=== PATIENT | female | born 1945 | race Caucasian/White ===

== ENCOUNTER 2016-08-07 17:52 | Inpatient (IN) | payer MEDICARE, OTHER ==
[2016-08-07] MEDS ORDERED: Adacel Vial IM ONE ×2 (18:02→18:18)
[2016-08-07] MEDS ORDERED: Zofran 4 MG/2 ML VIAL IV ONE (18:02)
[2016-08-07] MEDS ORDERED: Hydromorphone 1 mg/ml Ampule IV ONE (18:02)
--- NOTE | 2016-08-07 18:07 | ERPHSYRPT ---
- History of Present Illness Time Seen by Provider: 08/07/16 17:59 Source: patient Patient Subjective Stated Complaint: pt states she missed the last 2 steps on her stairs and injured left hip. pt c/o pain to left hip. Triage Nursing Assessment: pt pink, warm, dry. no deformity noted. no bruising at this time. pedal pulses strong. denies any other injuries. abrasion noted to left knee. Physician History: CC: left hip pain Hx: 71 y/o patient fell on last step in her basement. She landed on concrete. Pain in left hip prevents weight bearing. She had prior right hip replacement per Dr Trevino. She has no head injury. No neck or back pain. No chest pain. No abd pain. No N/T/W. Pain is severe and worse with movement. Unsure last tetanus vaccine. She has abrasion left knee without pain in knee. Timing/Duration: today Occured at: home Context: tripped (on last step) Hip Pain Location: hip (L) Severity of Pain-Max: severe Severity of Pain-Current: severe Allergies/Adverse Reactions: No Known Drug Allergies Allergy (Unverified 08/07/16 18:04) Home Medications: Calcium [Natural Calcium] 500 mg PO 5XD 08/07/16 [History] Cholecalciferol (Vitamin D3) [Vitamin D3] 1,000 unit PO DAILY 08/07/16 [History] [place]-3 Fatty Acids [Fish Oil] 300 mg PO DAILY 08/07/16 [History] Solifenacin Succinate [Vesicare] 10 mg PO DAILY 08/07/16 [History] Sulfamethoxazole/Trimethoprim [Sulfamethoxazole-Tmp Ds Tablet] 1 each PO BID [History] Hx Tetanus, Diphtheria Vaccination/Date Given: Yes (unknown) Hx Influenza Vaccination/Date Given: Yes Hx Pneumococcal Vaccination/Date Given: Yes Immunizations Up to Date: Yes - Review of Systems Constitutional: No Symptoms Eyes: No Vision Changes Ears, Nose, & Throat: No Symptoms Respiratory: No Dyspnea Cardiac: No Chest Pain Abdominal/Gastrointestinal: No Abdominal Pain, No Nausea, No Vomiting Musculoskeletal: Fall, Injury (left hip), No Back Pain, No Neck Pain Skin: No Rash Neurological: No Dizziness, No Focal Weakness, No Headache, No Parasthesia All Other Systems: Reviewed and Negative - Past Medical History Pertinent Past Medical History: Yes Cardiac History: High Cholesterol - Past Surgical History Past Surgical History: Yes Musculoskeletal: Joint Replacement, Orthopedic Surgery - Social History Smoking Status: Never smoker Exposure to second hand smoke: No Drug Use: none Patient Lives Alone: No - Nursing Vital Signs Nursing Vital Signs: Initial Vital Signs Temperature 98.7 F Temperature Source Oral Pulse Rate 68 Respiratory Rate 16 Blood Pressure [Right Arm] 157/74 Pain Intensity 0 - Physical Exam General Appearance: alert Eye Exam: PERRL/EOMI Ears, Nose, Throat Exam: normal ENT inspection, moist mucous membranes Neck Exam: normal inspection, non-tender, supple, No midline tenderness Respiratory Exam: normal breath sounds, lungs clear, No chest tenderness Cardiovascular Exam: regular rate/rhythm Gastrointestinal Exam: soft, No tenderness, No distention Extremity Exam: tenderness (left hip), other (abrasion left anterior knee without bony tenderness) Neurologic Exam: alert, oriented x 3, cooperative, switch adjuster II-XII nml as tested, sensation nml, No motor deficits Skin Exam: warm, dry, No rash - Course Nursing assessment & vital signs reviewed: Yes - Radiology Exams pelvix/left hip X-ray Interpretation: Reviewed by me (left supcapital fx) Ordered Tests: Active Orders 24 hr Category Date Time Status Catheter-Ringle Lina[place] STAT Care 08/07/16 18:02 Active IV Insertion STAT Care 08/07/16 18:02 Active NPO (ED) STAT Care 08/07/16 18:02 Active Oxygen-ED Only NASAL CANNULA 2 lpm Care 08/07/16 19:09 Active HIP UNI (2V) INCL PEL IF DONE Stat Exams 08/07/16 18:03 Taken CBC W DIFF Stat Lab 08/07/16 18:21 Completed CMP Stat Lab 08/07/16 18:21 Completed CULTURE,URINE Stat Lab 08/07/16 18:38 Received UA W/ MICROSCOPIC Stat Lab 08/07/16 18:38 Completed Medication Summary Generic Name Dose Route Start Last Admin Trade Name Freq PRN Reason Stop Dose Admin Sodium Chloride 1,000 mls @ 50 mls/hr 08/07/16 18:15 08/07/16 18:19 Sodium Chloride 0.9% 1000 Ml IV 09/06/16 18:14 50 mls/hr .Q20H WAYLON Administration Discontinued Medications Generic Name Dose Route Start Last Admin Trade Name Freq PRN Reason Stop Dose Admin Diphtheria/Tetanus/Acell Pertussis 0.5 ml 08/07/16 18:02 08/07/16 18:18 Adacel Vial IM 08/07/16 18:03 0.5 ml .ONCE ONE Administration Diphtheria/Tetanus/Acell Pertussis Confirm 08/07/16 18:18 Adacel Vial Administered 08/07/16 18:19 Dose 0.5 ml IM .STK-MED ONE Hydromorphone HCl 1 mg 08/07/16 18:02 08/07/16 18:19 Hydromorphone 1 Mg/Ml Ampule IV 08/07/16 18:03 1 mg STAT ONE Administration Hydromorphone HCl Confirm 08/07/16 18:14 Hydromorphone 1 Mg/Ml Ampule Administered 08/07/16 18:15 Dose 1 mg .ROUTE .STK-MED ONE Ondansetron HCl 4 mg 08/07/16 18:02 08/07/16 18:19 Zofran 4 Mg/2 Ml Vial IV 08/07/16 18:03 4 mg STAT ONE Administration Ondansetron HCl Confirm 08/07/16 18:14 Zofran 4 Mg/2 Ml Vial Administered 08/07/16 18:15 Dose 4 mg .ROUTE .STK-MED ONE Lab/Rad Data: Laboratory Result Diagrams 08/07/16 18:21 08/07/16 18:21 Laboratory Results 08/07/16 08/07/16 08/07/16 Range/Units 18:38 18:21 18:21 WBC 5.8 (4.0-10.5) K/mm3 RBC 4.40 (4.1-5.4) M/mm3 Hgb 12.7 (12.0-16.0) gm/dl Hct 39.5 (35-47) % MCV 89.8 (78-100) fl MCH 28.9 (26-32) pg MCHC 32.2 (32-36) g/dl RDW 13.2 (11.5-14.0) % Plt Count 193 (150-450) K/mm3 MPV 10.3 H (6-9.5) fl Gran % 60.7 (36.0-66.0) % Lymphocytes % 27.5 (24.0-44.0) % Monocytes % 7.6 (0.0-12.0) % Eosinophils % 4.0 (0.00-5.0) % Basophils % 0.2 (0.0-0.4) % Basophils # 0.01 (0-0.4) Sodium 141 (136-145) mEq/L Potassium 4.0 (3.5-5.1) mEq/L Chloride 106 (98-107) mEq/L Carbon Dioxide 24.8 (21-32) mEq/L Anion Gap 14.4 (5-15) MEQ/L BUN 19 (9-20) mg/dL Creatinine 1.23 (0.55-1.30) mg/dl Estimated GFR 46 ML/MIN Glucose 124 H (70-110) MG/DL Calcium 9.8 (8.5-10.1) mg/dL Total Bilirubin 0.2 (0.2-1.0) mg/dL AST 19 (15-37) U/L ALT 24 (12-78) U/L Alkaline Phosphatase 67 (46-116) U/L Serum Total Protein 6.7 (6.4-8.2) gm/dL Albumin 3.5 (3.4-5.0) g/dL Ur Collection Type CLEAN CATCH Urine Color YELLOW (YELLOW) Urine Appearance CLOUDY (CLEAR) Urine pH 6.0 (5-6) Ur Specific [place] 1.025 (1.005-1.025) Urine Protein 30 (Negative) Urine Glucose (UA) NEGATIVE (NEGATIVE) mg/dL Urine Ketones NEGATIVE (NEGATIVE) Urine Nitrite NEGATIVE (NEGATIVE) Urine Bilirubin NEGATIVE (NEGATIVE) Urine Urobilinogen 0.2 (0-1) mg/dL Urine WBC (Auto) TRACE (NEGATIVE) Urine RBC (Auto) LARGE (0-5) Robinson/ul Urine Microscopic RBC 50-100 (0-2) /HPF Urine Microscopic WBC 15-25 (0-5) /HPF Ur Epithelial Cells MODERATE (FEW) /HPF Urine Bacteria FEW (NEGATIVE) /HPF Specimen Received 08/07/16 1830 - Progress Progress Note: 08/07/16 19:16 Pt and aware of fx. Discussed options. They prefer admit here for Dr Narayan. Called Dr Narayan who advised admit, ice, no traction at present, eat now but NPO after MN. Called Dr Aguilar for Dr Rafy Johnson for admission. Will culture urine and cover with rocephin as she has pyruria. Will see patient in: hospital (full admit) Counseled pt/family regarding: diagnosis, need for follow-up, rad results - Departure Time of Disposition: 19:17 Departure Disposition: In-patient Admission Clinical Impression: Subcapital fracture of left hip Qualifiers: Encounter type: initial encounter Fracture type: closed Qualified Code(s): S72.012A - Unspecified intracapsular fracture of left femur, initial encounter for closed fracture UTI (urinary tract infection) Qualifiers: Urinary tract infection type: acute cystitis Hematuria presence: without hematuria Qualified Code(s): N30.00 - Acute cystitis without hematuria Condition: Fair Critical Care Time: No Referrals: JENNA JOHNSON [Primary Care Provider] -
[2016-08-07] MEDS ORDERED: Hydromorphone 1 mg/ml Ampule ONE (18:14)
[2016-08-07] MEDS ORDERED: Zofran 4 MG/2 ML VIAL ONE (18:14)
[2016-08-07] MEDS ORDERED: Sodium Chloride 0.9% 1000 ML 1,000 ML ONE (18:14)
[2016-08-07] MEDS ORDERED: Sodium Chloride 0.9% 1000 ML 1,000 ML IV SCH (18:15)
[2016-08-07 18:27] LABS: BASOPHIL % 0.2 % (0.0-0.4); Granulocytes % 60.7 % (36.0-66.0); Lymphocytes % 27.5 % (24.0-44.0); Mean Cell Volume 89.8 fl (78-100); Mean Corpuscular Hemoglobin 28.9 pg (26-32); Mean Platelet Volume 10.3 fl (6-9.5); Monocytes % 7.6 % (0.0-12.0); Platelet Count 193 K/mm3 (150-450); Red Cell Distribution Width 13.2 % (11.5-14.0); White Blood Count 5.8 K/mm3 (4.0-10.5)
[2016-08-07 18:57] LABS: COMPLETE URINE MICROSCOPIC? YES; Collection Type CLEAN CATCH
[2016-08-07 18:58] LABS: Bacteria FEW /HPF (NEGATIVE); Epithelial Cells MODERATE /HPF (FEW); WBC 15-25 /HPF (0-5)
[2016-08-07 19:10] LABS: ALBUMIN 3.5 g/dL (3.4-5.0); ANION GAP 14.4 MEQ/L (5-15); BILIRUBIN,TOTAL 0.2 mg/dL (0.2-1.0); Carbon Dioxide 24.8 mEq/L (21-32); Total Protein 6.7 gm/dL (6.4-8.2)
[2016-08-07] MEDS ORDERED: ROCEPHIN 1 Gm-D5w 50 ml Bag** 1 G/50 ML IVPB IV STA (19:15)
[2016-08-07] MEDS ORDERED: ROCEPHIN 1 Gm-D5w 50 ml Bag** 1 G/50 ML IVPB IV ONE (19:17)
[2016-08-07] MEDS ORDERED: Zofran 4 MG/2 ML VIAL IV PRN (19:36)
[2016-08-07] MEDS: D5W/0.45NS W/ 20mEq KCl 1000 ML 1,000 ML IV SCH (21:29)
[2016-08-07] MEDS: DILAUDID 1 MG/1ML PCA IV PRN (21:38)
[2016-08-08] MEDS: D5W/0.45NS W/ 20mEq KCl 1000 ML 1,000 ML IV SCH ×2 (05:11→15:49)
[2016-08-08 06:33] LABS: ANION GAP 9.9 MEQ/L (5-15); BLOOD UREA NITROGEN 15 mg/dL (9-20); CHLORIDE 106 mEq/L (98-107); Glucose 145 MG/DL (70-110); Potassium 3.6 mEq/L (3.5-5.1); SODIUM 139 mEq/L (136-145)
[2016-08-08 06:40] LABS: Mean Cell Volume 90.9 fl (78-100); Mean Corpuscular Hemoglobin 28.9 pg (26-32); Mean Platelet Volume 10.4 fl (6-9.5); Platelet Count 159 K/mm3 (150-450); Red Blood Count 4.19 M/mm3 (4.1-5.4); Red Cell Distribution Width 13.4 % (11.5-14.0); White Blood Count 5.3 K/mm3 (4.0-10.5)
[2016-08-08] MEDS: DILAUDID 1 MG/1ML PCA IV PRN ×2 (08:00→13:45)
--- NOTE | 2016-08-08 08:28 | PCM.HP ---
History of Present Illness - Chief Complaint Chief Complaint: Hip fracture Date: 08/08/16 History of Present Illness: is a 71 year old female. Who missed the last 2 steps at her home falling resulting in left hip pain found to have a left hip fracture. Pain is controlled now on the medication as long as she doesn't move it.Otherwise no symptoms. She is following with urology for hematuria and they have her on bactrim pending an upcoming cystoscopy. - Review of Systems Constitutional: No Fever, No Chills Eyes: No Symptoms Ears, Nose, & Throat: No Symptoms Respiratory: No Cough, No Short Of Breath Cardiac: No Chest Pain, No Edema, No Syncope Abdominal/Gastrointestinal: No Abdominal Pain, No Nausea, No Vomiting, No Diarrhea Genitourinary Symptoms: Hematuria, No Dysuria, No Frequency Musculoskeletal: Joint Pain, No Back Pain, No Neck Pain Skin: No Cellulitis, No Rash Neurological: No Dizziness, No Focal Weakness, No Sensory Changes Psychological: No Symptoms Endocrine: No Symptoms Hematologic/Lymphatic: No Symptoms Immunological/Allergic: No Symptoms Medications & Allergies Home Medications: Home Medication List Calcium [Natural Calcium] 500 mg PO 5XD 08/07/16 [History Confirmed 08/07/16] Cholecalciferol (Vitamin D3) [Vitamin D3] 1,000 unit PO DAILY 08/07/16 [History Confirmed 08/07/16] [place]-3 Fatty Acids [Fish Oil] 300 mg PO DAILY 08/07/16 [History Confirmed 08/07] Solifenacin Succinate [Vesicare] 10 mg PO DAILY 08/07/16 [History Confirmed ] Sulfamethoxazole/Trimethoprim [Sulfamethoxazole-Tmp Ds Tablet] 1 each PO BID [History Confirmed 08/07/16] Allergies/Adverse Reactions: Allergies Allergy/AdvReac Type Severity Reaction Status Date / Time No Known Drug Allergies Allergy Unverified 08/07/16 18:04 - Past Medical History Past Medical History: No Neurological History: No Pertinent History ENT History: No Pertinent History Cardiac History: No Pertinent History Respiratory History: No Pertinent History Endocrine Medical History: No Pertinent History Musculoskelatal History: Arthritis, Fractures GI Medical History: No Pertinent History History: No Pertinent History Reproductive Disorders: No Pertinent History Comment: Wrist fracture greater than 3 yrs ago, current hip fracture. - Female History Are you now?: No - Past Surgical History Past Surgical History: No Neuro Surgical History: No Pertinent History Cardiac History: No Pertinent History Respiratory Surgery: No Pertinent History GI Surgical History: No Pertinent History Genitourinary Surgical Hx: No Pertinent History Musculskeletal Surgical Hx: No Pertinent History Female Surgical History: No Pertinent History - Social History Smoking Status: Never smoker Exposure to second hand smoke: No Alcohol: None Drug Use: none - Physical Exam Vital Signs: Vital Signs - 24 hr Temp Pulse Resp BP Pulse Ox 08/08/16 07:11 98.8 F 71 18 113/81 96 08/08/16 06:40 98 08/08/16 04:15 98.5 F 67 22 124/73 96 08/08/16 01:38 93 L 08/08/16 00:43 95 08/08/16 00:00 98.0 F 68 16 140/80 95 08/07/16 21:38 95 08/07/16 21:36 71 18 96 08/07/16 20:18 97.6 F 70 16 171/79 95 08/07/16 19:08 68 16 157/74 96 08/07/16 17:58 98.7 F 72 18 174/80 Oxygen-Last 24 hours O2 Percentage 2 Liters = 28% O2 Percentage 2 Liters = 28% O2 Percentage 2 Liters = 28% O2 Percentage 2 Liters = 28% O2 Percentage 2 Liters = 28% O2 Percentage 2 Liters = 28% General Appearance: no apparent distress, alert Neurologic Exam: alert, oriented x 3, cooperative, normal mood/affect, nml cerebellar function, nml station & gait, sensation nml, No motor deficits Eye Exam: PERRL/EOMI, eyes nml inspection Ears, Nose, Throat Exam: normal ENT inspection, TMs normal, pharynx normal, moist mucous membranes Neck Exam: normal inspection, non-tender, supple, full range of motion Respiratory Exam: normal breath sounds, lungs clear, No respiratory distress Cardiovascular Exam: regular rate/rhythm, normal heart sounds, normal peripheral pulses Gastrointestinal/Abdomen Exam: soft, normal bowel sounds, No tenderness, No mass Back Exam: normal inspection, normal range of motion, No CVA tenderness, No vertebral tenderness Extremity Exam: normal inspection, other (left leg with good peripharl sensation adn perfusion), No pedal edema Skin Exam: normal color, warm, dry, No rash Lymphatic Exam: No adenopathy Results - Labs Lab/Micro Results: Lab Results-Last 24 Hours 08/08/16 08/08/16 Range/Units 05:20 05:20 WBC 5.3 (4.0-10.5) K/mm3 RBC 4.19 (4.1-5.4) M/mm3 Hgb 12.1 (12.0-16.0) gm/dl Hct 38.1 (35-47) % MCV 90.9 (78-100) fl MCH 28.9 (26-32) pg MCHC 31.8 L (32-36) g/dl RDW 13.4 (11.5-14.0) % Plt Count 159 (150-450) K/mm3 MPV 10.4 H (6-9.5) fl Sodium 139 (136-145) mEq/L Potassium 3.6 (3.5-5.1) mEq/L Chloride 106 (98-107) mEq/L Carbon Dioxide 27.0 (21-32) mEq/L Anion Gap 9.9 (5-15) MEQ/L BUN 15 (9-20) mg/dL Creatinine 0.96 (0.55-1.30) mg/dl Estimated GFR > 60 ML/MIN Glucose 145 H (70-110) MG/DL Calcium 8.5 (8.5-10.1) mg/dL Prealbumin 20.9 (18.0-35.7) mg/dL Assessment/Plan (1) Subcapital fracture of left hip Current Visit: Yes Status: Acute Qualifiers: Encounter type: initial encounter Fracture type: closed Qualified Code(s) : S72.012A - Unspecified intracapsular fracture of left femur, initial encounter for closed fracture Code(s): S72.012A - UNSP INTRACAPSULAR FRACTURE OF LEFT FEMUR, INIT FOR CLOS FX (2) Hematuria Current Visit: Yes Status: Acute Assessment & Plan: chronic following with urology who has her on ppx bactrim will continue the Rocephin while inpatient for the fracture and pednign culture resume bactrim on discharge per urology orders Code(s): R31.9 - HEMATURIA, UNSPECIFIED
[2016-08-08] MEDS: Ditropan 5 MG PO SCH ×2 (08:56→21:05)
[2016-08-08] MEDS: VITAMIN D PO SCH (08:56)
[2016-08-08] MEDS: Calcium 500MG W/Vit D Tablet PO SCH ×4 (08:56→21:04)
[2016-08-08] MEDS: FISH OIL 1,000 MG CAPSULE PO SCH (08:56)
--- NOTE | 2016-08-08 09:03 | XRAY ---
Indication: Left hip pain following fall. Comparison: None AP pelvis and 2 views of the left hip demonstrates minimally impacted left subcapital femur fracture. Elsewhere osteopenia, right total hip arthroplasty, and lower lumbar degenerative changes.
--- NOTE | 2016-08-08 09:03 | XRAY ---
Indication: Hypoxia. Comparison: None Portable chest clear. Heart and mediastinal structures within normal limits for AP portable technique. Bony thorax intact with osteopenia and advanced left shoulder degenerative changes. Impression: Nonacute chest.
[2016-08-08] MEDS ORDERED: NON-FORMULARY ITEM (Cholecalciferol (Vitamin D3) [Vitamin D3] 1,000 UNIT) PO SCH (10:00)
[2016-08-08] MEDS ORDERED: NON-FORMULARY ITEM (Omega-3 Fatty Acids [Fish Oil] 300 MG) PO SCH (10:00)
[2016-08-08] MEDS ORDERED: NON-FORMULARY ITEM (Solifenacin Succinate [Vesicare] 10 MG) PO SCH (10:00)
[2016-08-08] MEDS ORDERED: CALCIUM 500 MG PO SCH (11:00)
[2016-08-08] MEDS ORDERED: CEFAZOLIN 2 GM-D5W BAG** 50 ML IV SCH (16:30)
[2016-08-08] MEDS: ROCEPHIN 1 Gm-D5w 50 ml Bag** 1 G/50 ML IVPB IV SCH (21:06)
[2016-08-09] MEDS: D5W/0.45NS W/ 20mEq KCl 1000 ML 1,000 ML IV SCH (02:28)
[2016-08-09] MEDS: Lactated Ringers 1,000 ML IV SCH ×2 (05:06→19:19)
[2016-08-09] MEDS ORDERED: CEFAZOLIN 2 GM-D5W BAG** 50 ML IV ONE (05:17)
[2016-08-09] MEDS ORDERED: Lactated Ringers 1,000 ML IV ONE (06:32)
--- NOTE | 2016-08-09 08:45 | OP ---
SURGERY DATE/TIME: 08/09/2016709 PREOPERATIVE DIAGNOSIS: Unstable fracture left proximal femur. POSTOPERATIVE DIAGNOSIS: Unstable fracture left proximal femur. PROCEDURES: 1) Left proximal femur open reduction internal fixation. 2) Fluoroscopy per surgeon. 3) Modified long leg splint. SURGEON: Billy Narayan D.O. INTERNET MARKETING CONSULTANT: None. ANESTHESIA: General per TRUST MANAGER. ESTIMATED BLOOD LOSS: Minimal. INDICATION: The patient has a subcapital fracture of the hip which is a Garden II maybe Garden III on the overall fracture deformity platform this really can be treated either with simple pinning or a bipolar hemiarthroplasty. However as I discussed with the patient, simpler more easily recoverable procedure is wisest although there is the risk for femoral head avascular necrosis and lack of healing with a femoral neck fracture in the coming 6 to 12 weeks and there is always the chance it may be converted to bipolar hemiarthroplasty with some modified hip replacement similar to what the patient had on the opposite side not for a fracture but for a degenerative condition apparently. DESCRIPTION OF PROCEDURE: The patient is taken to the operative suite and placed in supine position, given general anesthetic, placed supine. All neurovascular areas well padded. Sterile prep and drape done to the left hip after traction placement was done for the leg and nice reduction obtained on AP and lateral views. Incision made across the lateral aspect of the hip down to fascia, down to bone and then the modified reduction techniques held and started by guide pin 3.2 mm placed two to three across the fracture site and then followed by a depth gauge, followed by cannulated screws. The cannulated screws were varying in length from 90 to 95 mm. Using a cortex breaker and then delivering these under power AP and lateral views throughout the procedure performed for maintenance of reduction. Ultimately once the fracture was fixed and then truly held, the wounds were irrigated with saline and closed with interrupted 0 Vicryl and then alice in the skin. Xeroform, 4x4 and sterile dressings applied. The patient is sent on to recovery in satisfactory condition at that point.
--- NOTE | 2016-08-09 09:13 | XRAY ---
Indication: ORIF surgery for fracture. Intraoperative fluoroscopy was provided for 2 minutes and 25 seconds. 2 digital spot images submitted for interpretation demonstrates 3 orthopedic screws fixating a subcapital femur fracture. Apposition/alignment is near-anatomic. Correlate with intraoperative findings/report.
[2016-08-09] MEDS ORDERED: MORPHINE SULFATE 4 MG INJ IV PRN (09:59)
[2016-08-09] MEDS: Calcium 500MG W/Vit D Tablet PO SCH ×2 (10:00→22:37)
[2016-08-09] MEDS: FISH OIL 1,000 MG CAPSULE PO SCH (10:00)
[2016-08-09] MEDS: Ditropan 5 MG PO SCH ×2 (10:00→22:41)
[2016-08-09] MEDS: VITAMIN D PO SCH (10:00)
[2016-08-09] MEDS ORDERED: SUBLIMAZE 250 MCG/5 ML IJ ONE (12:54)
--- NOTE | 2016-08-09 14:29 | XRAY ---
2 minutes and 25 seconds fluoroscopy time in surgery for left hip reduction.
[2016-08-09] MEDS: DILAUDID 1 MG/1ML PCA IV PRN (16:38)
[2016-08-09] MEDS ORDERED: TYLENOL EXTRA STRENGTH 500 MG PO PRN (19:10)
[2016-08-09] MEDS: ROCEPHIN 1 Gm-D5w 50 ml Bag** 1 G/50 ML IVPB IV SCH (22:37)
[2016-08-10 05:45] LABS: Mean Cell Volume 90.9 fl (78-100); Mean Corpuscular Hemoglobin 28.5 pg (26-32); Mean Platelet Volume 10.1 fl (6-9.5); Platelet Count 156 K/mm3 (150-450); Red Blood Count 4.39 M/mm3 (4.1-5.4); Red Cell Distribution Width 13.2 % (11.5-14.0); White Blood Count 4.5 K/mm3 (4.0-10.5)
[2016-08-10] MEDS ORDERED: DIPRIVAN 200 MG/20 ML IV ONE (08:00)
[2016-08-10] MEDS ORDERED: Catapres 0.1 MG PO PRN (08:13)
[2016-08-10 08:18] VITALS: PULSE 88; O2SAT 93
--- NOTE | 2016-08-10 08:23 | PCM.DCORD ---
- Discharge Discharge Date: 08/10/16 Disposition: Home, Self-Care Condition: Good Prescriptions: New Enoxaparin Sodium [Enoxaparin Sodium] 40 mg SQ DAILY #9 syringe Hydrocodone Bit/Acetaminophen [[place] 5-325 Tablet] 1 each PO Q4H PRN #24 tablet PRN Reason: Pain Continue Solifenacin Succinate [Vesicare] 10 mg PO DAILY Cholecalciferol (Vitamin D3) [Vitamin D3] 1,000 unit PO DAILY [place]-3 Fatty Acids [Fish Oil] 300 mg PO DAILY Calcium [Natural Calcium] 500 mg PO BID Sulfamethoxazole/Trimethoprim [Sulfamethoxazole-Tmp Ds Tablet] 1 each PO BID Follow up with: JENNA JOHNSON [Primary Care Provider] - SUZE DERAS [ACTIVE STAFF] - 08/23/16 9:00 am (at t.h. office) Forms: Patient Portal Information
[2016-08-10] MEDS: FISH OIL 1,000 MG CAPSULE PO SCH (09:21)
[2016-08-10] MEDS: VITAMIN D PO SCH (09:21)
[2016-08-10] MEDS: Calcium 500MG W/Vit D Tablet PO SCH (09:21)
[2016-08-10 09:24] VITALS: BP 159/76
[2016-08-10] MEDS ORDERED: ENOXAPARIN SODIUM SQ SCH (10:00)
[2016-08-10] MEDS: DILAUDID 1 MG/1ML PCA IV PRN (10:55)
[2016-08-10] MEDS ORDERED: TORAdol 30 mg Injection IJ ONE (12:54)
[2016-08-10] MEDS ORDERED: BLOXIVERZ IV ONE (12:54)
[2016-08-10] MEDS ORDERED: ROBINUL IV ONE (12:54)
[2016-08-10] MEDS ORDERED: Zemuron 100 MG/10 ML IJ ONE (12:54)
[2016-08-10] MEDS ORDERED: Versed 2 MG/2 ML Injection IV ONE (12:54)
--- NOTE | 2016-08-13 21:07 | PCM.DS ---
Discharge Summary Date of Admission: 08/07/16 20:11 Date of Discharge: 08/10/16 Admitting Physician: JENNA JOHNSON Consults: Consults on Case 08/09/16 10:00 Consult Physician ROUTINE Primary Care Provider: JENNA JOHNSON Allergies Allergies No Known Drug Allergies Allergy (Unverified 08/07/16 18:04) Hospital Summary - Hospital Course Hospital Course: She slipped on her basement steps falling down the last 2 resulting in left hip fracture. This was pineed by Dr. Narayan on 08/09/2016 see his op report for details. Her pain was controlled she was partial weight baring and discharged to home with 10 day total of post op dvt ppx of lovenox 40 mcg. She was having some labile htn as well and some difficulty urinating at times and she is going to hold her antispasmodic until urination improves. - Vitals & Intake/Output Vital Signs: Vital Signs Temperature 97.6 F 08/10/16 13:00 Pulse Rate 88 08/10/16 13:00 Respiratory Rate 20 08/10/16 08:00 Blood Pressure 159/76 08/10/16 13:00 O2 Sat by Pulse Oximetry 93 L 08/10/16 13:00 Oxygen-Last Documented O2 Percentage 2 Liters = 28% Intake & Output: Intake & Output 08/11/16 08/12/16 08/13/16 08/14/16 11:59 11:59 11:59 11:59 Intake Total 240 Output Total 100 Balance 140 - Lab Result Diagrams: 08/10/16 05:25 08/08/16 05:20 - Procedures and Test Procedures and Tests throughout Hospitalization: Therapy Orders & Screens 08/08/16 10:00 OT Screen per Nursing Assess Comment: Protocol Order Physician Instructions: Greater than 3 points order OT Admission Screening Reason For Exam: Triggered on Admission Diagnosis: Hip fracture Open Wound/Cellutlitis/Pressure Ulcers: No Acute Fx/ORIF/Change in wt bearing status: Yes Severe MUSCULOSKELETAL pain: Yes ADL Dysfunction: No Acute CVA w/Hemiparesis/Hemiplegia: No Decreased Functional Mobility/Strength: Yes Sprain/Strain: No Acute Post-op Mobility Dysfunction: No Total Points: 11 PT Screen per Nursing Assess ONCE Comment: Protocol Order Physician Instructions: Greater than 3 points order PT Admission Screenin Reason For Exam: Triggered on Admission Diagnosis: Hip fracture Open Wound/Cellutlitis/Pressure Ulcers: No Acute Fx/ORIF/Change in wt bearing status: Yes Severe MUSCULOSKELETAL pain: Yes ADL Dysfunction: No Acute CVA w/Hemiparesis/Hemiplegia: No Decreased Functional Mobility/Strength: Yes Sprain/Strain: No Acute Post-op Mobility Dysfunction: No Total Points: 11 08/09/16 09:48 Incentive Spirometry Assessmen TID Comment: Diagnosis: Hip fracture 08/09/16 10:00 PT Eval & Treat (MD Order) Evaluate: Yes Treat: Yes Reason for Eval:: dailyfor partial weight bearing and walker training Diagnosis: left hip orif Discharge Exam General Appearance: no apparent distress, alert Neurologic Exam: alert, oriented x 3, cooperative, normal mood/affect, nml cerebellar function, sensation nml, No motor deficits Skin Exam: normal color, warm, dry Eye Exam: PERRL, EOMI, eyes nml inspection Ears, Nose, Throat Exam: pharynx normal, moist mucous membranes Neck Exam: normal inspection, non-tender, supple, full range of motion Respiratory Exam: normal breath sounds, lungs clear, No respiratory distress Cardiovascular Exam: regular rate/rhythm, normal heart sounds Gastrointestinal/Abdomen Exam: soft, No tenderness, No mass Extremity Exam: normal inspection, other (no edema good peirpheral perfusion) Back Exam: normal inspection, normal range of motion, No CVA tenderness, No vertebral tenderness Pelvic Exam: deferred Rectal Exam: deferred Final Diagnosis/Problem List - Final Discharge Diagnosis/Problem (1) Subcapital fracture of left hip Status: Acute (2) Hematuria Status: Acute - Discharge Discharge Date: 08/10/16 Disposition: Home, Self-Care Condition: Good Prescriptions: New Enoxaparin Sodium [Enoxaparin Sodium] 40 mg SQ DAILY #9 syringe Hydrocodone Bit/Acetaminophen [[place] 5-325 Tablet] 1 each PO Q4H PRN #24 tablet PRN Reason: Pain Continue Solifenacin Succinate [Vesicare] 10 mg PO DAILY Cholecalciferol (Vitamin D3) [Vitamin D3] 1,000 unit PO DAILY [place]-3 Fatty Acids [Fish Oil] 300 mg PO DAILY Calcium [Natural Calcium] 500 mg PO BID Sulfamethoxazole/Trimethoprim [Sulfamethoxazole-Tmp Ds Tablet] 1 each PO BID Instructions: Open Reduction Internal Fixation Surgery Additional Instructions: KEEP DRESSING CLEAN AND DRY MAY USE TELFA PADS AND 4X4 TO COVER Follow up with: JENNA JOHNSON [Primary Care Provider] - SUZE NARAYAN [ACTIVE STAFF] - 08/23/16 9:00 am (at t.h. office) Forms: Discharge Instructions, Patient Portal Information
== END 2016-08-10 12:55 | disposition home or self-care (01) | DRG 482 ==
LOC: ED 17:52 → MED SURG 20:11
PROVIDERS: ADMIT Family Medicine; ATTEND Orthopaedic Surgery
PROC: 0QS704Z Reposition Left Upper Femur with Internal Fixation Device, Open Approach (ICD-10-PCS; principal; 2016-08-09)
DX: S72.012A Unspecified intracapsular fracture of left femur, initial encounter for closed fracture (principal); M25.552 Pain in left hip; W17.89XA Other fall from one level to another, initial encounter; Y92.098 Other place in other non-institutional residence as the place of occurrence of the external cause; Y99.8 Other external cause status; R31.9 Hematuria, unspecified; M19.90 Unspecified osteoarthritis, unspecified site; Z79.899 Other long term (current) drug therapy
CPT/HCPCS: 01210; 36000; 36415; 51702; 71010; 73502; 76000; 80048; 80053; 81000; 84134; 85025; 85027; 87086; 90471; 90715; 94762; 94770; 96360; 96365; 96374; 96375; 99100; 99285; J0690; J0696; J1170; J1650; J1885; J2250; J2405; J2704; J2710; J3010; A9270-GY